=== PATIENT | male | born 1995 | race American Indian/Alaskan Native ===

== ENCOUNTER 2018-10-22 22:26 | Emergency (ER) | payer OTHER ==
[2018-10-22 22:39] VITALS: BP 101/63
--- NOTE | 2018-10-22 23:02 | XRay Report ---
RIGHT HAND, 2 VIEWS 10/22/2018 INDICATION / CLINICAL INFORMATION: cut hand on glass. COMPARISON: None available. FINDINGS: No skeletal abnormality. No radiopaque soft tissue foreign body. Signer Name: Eric Gamble MD Signed: 10/22/2018 10:58 PM Workstation Name: [id number]
[2018-10-23] MEDS ORDERED: XYLOCAINE 2% INFILTRATI ONE ×2 (02:39)
--- NOTE | 2018-10-23 03:07 | Emergency Department Report ---
- General Chief Complaint: Wound/Laceration Stated Complaint: LACERATION TO RT HAND Time Seen by Provider: 10/22/18 22:33 Source: patient Mode of arrival: Ambulatory Limitations: No Limitations - History of Present Illness Initial Comments: Patient is a 23-year-old -[place] male with no past medical history who presents to the ED with complaint of acute onset persistent severe painful bleeding right palm laceration after he tripped on his dog at home and landed on a glass that broke and cut his right palm about 2 hours ago. Patient states that the bleeding has been persistent since the injury occurred. Patient states that he is up-to-date with his tetanus vaccinations. Patient denies numbness, tingling or weakness of the right hand, dizziness, syncope, shortness of breath or change in vision. -: Sudden, hour(s) (2) Location: other (right palm) Extremity Location: Right: Hand (right hand) 1 - Bleeding right palm laceration Place: home Patient Tetanus UTD: Yes Context: accidental, fall Associated Symptoms: pain, suspect foreign body present. denies: loss of feeling/numbness, unable to move injured part, weakness followed by dizziness, nausea/vomiting, fever - Related Data Previous Rx's Medication Instructions Recorded Last Taken Type Acetaminophen/Codeine [Tylenol 1 tab PO Q6H PRN #10 tab 10/23/18 Unknown Rx /Codeine # 3 tab] Ibuprofen [Motrin] 800 mg PO Q8HR PRN #20 tablet 10/23/18 Unknown Rx cephALEXin [Keflex] 500 mg PO Q8HR #30 cap 10/23/18 Unknown Rx Allergies Allergy/AdvReac Type Severity Reaction Status Date / Time No Known Allergies Allergy Verified 10/22/18 22:38 ED Review of Systems ROS: Stated complaint: LACERATION TO RT HAND Other details as noted in HPI Constitutional: denies: chills, fever Eyes: denies: eye pain, eye discharge, vision change ENT: denies: ear pain, throat pain Respiratory: denies: cough, shortness of breath, wheezing Cardiovascular: denies: chest pain, palpitations Endocrine: no symptoms reported Gastrointestinal: denies: abdominal pain, nausea, diarrhea Genitourinary: denies: urgency, dysuria Musculoskeletal: arthralgia (right hand pain due to a bleeding laceration on right palm). denies: back pain, joint swelling Skin: other (Bleeding laceration on right palm). denies: rash, lesions Neurological: denies: headache, weakness, paresthesias Psychiatric: denies: anxiety, depression Hematological/Lymphatic: denies: easy bleeding, easy bruising ED Past Medical Hx - Medications Home Medications: Home Medications Medication Instructions Recorded Confirmed Last Taken Type Acetaminophen/Codeine [Tylenol 1 tab PO Q6H PRN #10 tab 10/23/18 Unknown Rx /Codeine # 3 tab] Ibuprofen [Motrin] 800 mg PO Q8HR PRN #20 tablet 10/23/18 Unknown Rx cephALEXin [Keflex] 500 mg PO Q8HR #30 cap 10/23/18 Unknown Rx ED Physical Exam - General Limitations: No Limitations General appearance: alert, in no apparent distress - Head Head exam: Present: atraumatic, normocephalic, normal inspection - Eye Eye exam: Present: normal appearance, PERRL, EOMI. Absent: scleral icterus, conjunctival injection, periorbital swelling, periorbital tenderness Pupils: Present: normal accommodation - ENT ENT exam: Present: normal exam, normal orophraynx, mucous membranes moist, TM's normal bilaterally, normal external ear exam - Neck Neck exam: Present: normal inspection, full ROM - Respiratory Respiratory exam: Present: normal lung sounds bilaterally. Absent: respiratory distress, wheezes, rales, stridor, chest wall tenderness, accessory muscle use, decreased breath sounds, prolonged expiratory - Cardiovascular Cardiovascular Exam: Present: regular rate, normal rhythm, normal heart sounds. Absent: systolic murmur, diastolic murmur, rubs, gallop - GI/Abdominal GI/Abdominal exam: Present: soft, normal bowel sounds. Absent: tenderness, guarding, rigid, hyperactive bowel sounds, hypoactive bowel sounds, organomegaly - Rectal Rectal exam: Present: deferred - Extremities Exam Extremities exam: Present: tenderness (Palpable tenderness of right palm due to a bleeding 4 cm laceration), normal capillary refill. Absent: pedal edema, joint swelling, calf tenderness - Back Exam Back exam: Present: normal inspection. Absent: muscle spasm, paraspinal tenderness - Neurological Exam Neurological exam: Present: alert, oriented X3, CN II-XII intact, normal gait, reflexes normal - Psychiatric Psychiatric exam: Present: normal affect, normal mood - Skin Skin exam: Present: warm, dry, intact, normal color, other (Bleeding right palm 4 cm laceration). Absent: rash ED Course Vital Signs 10/22/18 22:36 Temperature 98.0 F Pulse Rate 68 Respiratory 18 Rate Blood Pressure 101/63 O2 Sat by Pulse 98 Oximetry - Reevaluation(s) Reevaluation #1: 10/23/18 03:08 This is a 23-year-old male who presented to the ED with active bleeding lacera tion. Patient is alert and oriented 3 and is not in distress with normal vital signs. Patient was treated for pain in the ED and right hand x-ray shows no acute fractures or foreign objects in the tissues. The right bleeding wound was cleaned thoroughly and lidocaine 1% solution applied around it anesthetize the wound. The wound was then sutured per protocol and the patient tolerated the procedure well. Patient was discharged home on pain medications and prophylactic antibiotics and advised to follow-up with his primary care physician in 7-10 days for reevaluation or return to the ED immediately if symptoms get worse. Patient was also advised to return to the ED in 12-14 days. His primary care physician for suture removal. - Laceration /Wound Repair Right Palm Wound Location: upper extremity (right palm) Wound Explored: contaminated Irrigated w/ Saline (ccs): 4 Betadine Prep?: Yes Anesthesia: 1% Lidocaine Volume Anesthetic (ccs): 5 Wound Debrided: extensive Wound Repaired With: sutures Suture Size/Type: 4:0, proline Number of Sutures: 11 Layer Closure?: No Sterile Dressing Applied?: Yes Progress: Patient tolerated procedure well ED Medical Decision Making - Radiology Data Radiology results: report reviewed, image reviewed Right hand x-ray: No fractures, subluxations or foreign bodies in tissues - Medical Decision Making This is a 23-year-old male who presented to the ED with active bleeding laceration. Patient is alert and oriented 3 and is not in distress with normal vital signs. Patient was treated for pain in the ED and right hand x-ray shows no acute fractures or foreign objects in the tissues. The right bleeding wound was cleaned thoroughly and lidocaine 1% solution applied around it anesthetize the wound. The wound was then sutured per protocol and the patient tolerated the procedure well. Patient was discharged home on pain medications and prophylactic antibiotics and advised to follow-up with his primary care physician in 7-10 days for reevaluation or return to the ED immediately if symptoms get worse. Patient was also advised to return to the ED in 12-14 days. His primary care physician for suture removal. - Differential Diagnosis right palm laceration;hand fracture; Puncture wound with foreign bodies Critical care attestation.: If time is entered above; I have spent that time in minutes in the direct care of this critically ill patient, excluding procedure time. ED Disposition Clinical Impression: Laceration of right hand without foreign body Qualifiers: Encounter type: initial encounter Qualified Code(s): S61.411A - Laceration wit hout foreign body of right hand, initial encounter Puncture wound of right hand Qualifiers: Encounter type: initial encounter Foreign body presence: without foreign body Qualified Code(s): S61.431A - Puncture wound without foreign body of right hand, initial encounter Disposition: TO HOME OR SELFCARE Is pt being admited?: No Does the pt Need Aspirin: No Condition: Stable Instructions: Laceration (ED), Puncture Wound (ED) Additional Instructions: Take medications with food, drink plenty of fluids and follow-up with your primary care physician in 7-10 days for reevaluation. Return to the ED immediately if symptoms get worse. Otherwise follow-up with her primary care physician or return to ED in 12-14 days for suture removal. Prescriptions: cephALEXin [Keflex] 500 mg PO Q8HR #30 cap Ibuprofen [Motrin] 800 mg PO Q8HR PRN #20 tablet PRN Reason: Pain , Severe (7-10) Acetaminophen/Codeine [Tylenol /Codeine # 3 tab] 1 tab PO Q6H PRN #10 tab PRN Reason: Pain , Severe (7-10) Referrals: [facility] [Outside] - 3-5 Days Forms: Work/School Release Form(ED) Time of Disposition: 03:15 Print Language: CHINESE
== END 2018-10-23 03:25 | disposition home or self-care (01) ==
LOC: ED 22:26
DX: S61.411A Laceration without foreign body of right hand, initial encounter (principal); S61.431A Puncture wound without foreign body of right hand, initial encounter; Z79.899 Other long term (current) drug therapy; W25.XXXA Contact with sharp glass, initial encounter; Y93.89 Activity, other specified; Y92.89 Other specified places as the place of occurrence of the external cause; Y99.8 Other external cause status